=== PATIENT | male | born 1955 | race Two or more races ===

== ENCOUNTER 2017-07-12 21:05 | Emergency (ER) | payer SELFPAY ==
[~2017-07-12] VITALS: Ht 175.3 cm; Wt 86.2 kg
[2017-07-12] MEDS ORDERED: cloNIDine HCL 0.1 MG TAB ONE (21:08)
[2017-07-12] MEDS ORDERED: cloNIDine HCL 0.1 MG TAB PO ONE (21:30)
[2017-07-12 21:39] LABS: Basophils # (auto) 0 uL; Basophils % (auto) 0.5 % (0.0-2.0); CONDITION Y; Eosinophils # (auto) 0.1 uL; Eosinophils % (auto) 1.2 % (0.0-7.0); Hemoglobin 16.1 g/dL (13.5-17.5); Lymphocytes # (auto) 1.7 uL; Lymphocytes % (auto) 22.1 % (10.0-50.0); Mean Corpuscular Hemoglobin 30.2 pg (28.0-32.0); Mean Corpuscular Hgb Conc. 34.3 g/dL (32.0-36.0); Mean Corpuscular Volume 88.1 fL (80.0-100.0); Mean Platelet Volume 8.3 fL (7.4-10.4); Monocytes # (auto) 0.4 uL; Monocytes % (auto) 5.4 % (0.0-12.0); Neutrophils # (auto) 5.3 uL; Neutrophils % (auto) 70.8 % (37.0-80.0); Platelet Count (auto) 265 10^3/uL (140-450); Red Cell Distribution Width 13.9 % (11.6-16.0); White Blood Cell 7.6 10^3/uL (4.4-10.8)
[2017-07-12 22:04] LABS: Albumin 4.1 g/dL (3.4-5.0); Alkaline Phosphatase 80 U/L (45-117); Anion Gap 9 (5-15); Aspartate Aminotransferase 22 U/L (15-37); BUN/Creatinine Ratio 9.2; Bilirubin, Total 0.6 mg/dL (0.2-1.0); Blood Urea Nitrogen 9 mg/dL (7-18); Calcium 8.8 mg/dL (8.5-10.1); Carbon Dioxide 30 mmol/L (21-32); Chloride 101 mmol/L (98-107); GFR African American 100 mL/min; GFR Non-African American 82 mL/min; Glucose 113 mg/dL (74-106); Magnesium 2.6 mg/dL (1.6-2.6); Potassium 3.3 mmol/L (3.5-5.1); Sodium 140 mmol/L (136-145); Total Protein 8.2 g/dL (6.4-8.2)
[2017-07-12 22:08] LABS: INR 0.97 (0.9-1.15); Prothrombin Time 10.6 sec (9.37-12.3)
[2017-07-13] MEDS ORDERED: cloNIDine HCL 0.1 MG TAB PO ONE (07:45)
[2017-07-13 08:36] VITALS: BP 152/104
== END 2017-07-13 08:39 | disposition home or self-care (01) ==
LOC: ER 21:18
DX: I10 Essential (primary) hypertension (principal); R09.81 Nasal congestion; R42 Dizziness and giddiness
CPT/HCPCS: 36415; 70450; 71020; 80053; 83735; 84484; 85025; 85610; 85730; 93005